=== PATIENT | female | born 1990 | race Caucasian/White ===

== ENCOUNTER 2024-03-08 14:24 | Emergency (ER) | payer OTHER ==
[~2024-03-08] VITALS: Ht 149.9 cm; Wt 64.4 kg
[2024-03-08 14:36] VITALS: PULSE 116; RESP 20; TEMP 99.4
[2024-03-08 15:07] VITALS: PULSE 86; RESP 16; O2SAT 96
== END 2024-03-08 15:07 | disposition home or self-care (01) ==
LOC: ER 14:45
DX: R50.9 Fever, unspecified (principal); F41.9 Anxiety disorder, unspecified
CPT/HCPCS: 93005; 99282